=== PATIENT | female | born 1985 | race Asian ===

== ENCOUNTER → 2022-12-21 | Outpatient (CLI) | payer MEDICAID ==
[2022-12-21 11:09] LABS: Basophils # (auto) 0 10 ^3/uL (0-0.2); Basophils % (auto) 0.4 % (0.0-2.0); Eosinophils # (auto) 0.2 10 ^3/uL (0-0.8); Eosinophils % (auto) 1.5 % (0.0-7.0); Hematocrit 35.7 % (36.0-46.0); Hemoglobin 11.9 g/dL (12.2-16.2); Lymphocytes # (auto) 1.9 10 ^3/uL (0.4-5.4); Lymphocytes % (auto) 16.9 % (10.0-50.0); Mean Corpuscular Hemoglobin 29.3 pg (28.0-32.0); Mean Corpuscular Hgb Conc. 33.4 g/dL (32.0-36.0); Mean Corpuscular Volume 87.7 fL (80.0-100.0); Monocytes # (auto) 0.7 10 ^3/uL (0-1.3); Monocytes % (auto) 6.4 % (0.0-12.0); Neutrophils # (auto) 8.4 10 ^3/uL (1.6-8.6); Neutrophils % (auto) 74.8 % (37.0-80.0); Nucleated Red Blood Cells % 0.1 %; Red Blood Cells 4.07 10^6/uL (4.0-5.20); Red Cell Distribution Width 13.3 % (11.8-14.3); White Blood Cell 11.2 10^3/uL (4.4-10.8)
[2022-12-22 07:06] LABS: RPR Non Reactive (Non Reactive)
== END | disposition home or self-care (01) ==
LOC: LAB 10:36 → EDBD 10:36
PROVIDERS: ATTEND Obstetrics & Gynecology
DX: O09.90 Supervision of high risk pregnancy, unspecified, unspecified trimester (principal); N76.0 Acute vaginitis; Z3A.00 Weeks of gestation of pregnancy not specified
CPT/HCPCS: 36415; 84112; 85025; 86592

== ENCOUNTER 2023-01-24 20:03 | Observation (INO) | payer MEDICAID ==
[~2023-01-24] VITALS: Ht 160 cm; Wt 86.6 kg
[2023-01-24] MEDS ORDERED: PREN27TA7 PO (22:13)
== END 2023-01-24 22:22 | disposition home or self-care (01) ==
LOC: LDRP 20:03
PROVIDERS: ADMIT Obstetrics & Gynecology; ATTEND Obstetrics & Gynecology
DX: O48.0 Post-term pregnancy (principal); O62.9 Abnormality of forces of labor, unspecified; Z3A.40 40 weeks gestation of pregnancy
CPT/HCPCS: 59025; 76818; 81002; 94760; G0378

== ENCOUNTER 2023-01-26 13:12 | Observation (INO) | payer MEDICAID ==
[~2023-01-26 13:12] MED LIST: PREN27TA7 PO
== END 2023-01-26 15:06 | disposition home or self-care (01) ==
LOC: LDRP 13:12
PROVIDERS: ADMIT Obstetrics & Gynecology; ATTEND Obstetrics & Gynecology
DX: O48.0 Post-term pregnancy (principal); O62.9 Abnormality of forces of labor, unspecified; O09.33 Supervision of pregnancy with insufficient antenatal care, third trimester; Z3A.40 40 weeks gestation of pregnancy
CPT/HCPCS: 59025; 76818; 81002; G0378

== ENCOUNTER 2023-01-28 19:08 | Observation (INO) | payer MEDICAID | END 2023-01-28 21:00 | disposition home or self-care (01) | LOC: LDRP 19:08 | PROVIDERS: ADMIT Obstetrics & Gynecology; ATTEND Obstetrics & Gynecology | DX: O48.0 Post-term pregnancy (principal); Z3A.40 40 weeks gestation of pregnancy | CPT/HCPCS: 59025; 76818; 81002; 94760; G0378 ==

== ENCOUNTER 2023-01-30 19:24 | Inpatient (IN) | payer MEDICAID ==
[~2023-01-30] VITALS: Ht 160 cm; Wt 86.6 kg
[2023-01-30] MEDS ORDERED: PHISODERM TOP SOLN 240ML BTL TOP PRN (22:30)
[2023-01-30] MEDS ORDERED: LIDOCAINE 2%HCL (LOCAL ANESTH.) INJ 20ML MDV IJ PRN (22:30)
[2023-01-30 22:54] LABS: Basophils # (auto) 0.1 10 ^3/uL (0-0.2); Basophils % (auto) 0.4 % (0.0-2.0); Eosinophils # (auto) 0.1 10 ^3/uL (0-0.8); Eosinophils % (auto) 0.8 % (0.0-7.0); Hematocrit 38.6 % (36.0-46.0); Lymphocytes # (auto) 2.1 10 ^3/uL (0.4-5.4); Lymphocytes % (auto) 11.1 % (10.0-50.0); Mean Corpuscular Hemoglobin 29.9 pg (28.0-32.0); Mean Corpuscular Hgb Conc. 33.8 g/dL (32.0-36.0); Mean Corpuscular Volume 88.4 fL (80.0-100.0); Monocytes % (auto) 5.2 % (0.0-12.0); Neutrophils # (auto) 15.3 10 ^3/uL (1.6-8.6); Neutrophils % (auto) 82.5 % (37.0-80.0); Red Blood Cells 4.37 10^6/uL (4.0-5.20); Red Cell Distribution Width 14.6 % (11.8-14.3); White Blood Cell 18.5 10^3/uL (4.4-10.8)
[2023-01-30 23:00] LABS: INR 0.9 (0.9-1.15); Partial Thromboplastin Time 27.1 SEC (24.5-34.5)
[2023-01-30 23:00] LABS: Urine Bacteria NONE SEEN /hpf (None Seen); Urine Blood 1+ /uL (Negative); Urine Specific Gravity 1.002 (1.001-1.035); Urine WBC <1 /hpf (0 - 5)
[2023-01-30] MEDS ORDERED: TRANEXAMIC ACID 1,000 MG in SODIUM CHL 0.9% 100 ML IV PRN (23:00)
[2023-01-30] MEDS ORDERED: CARBOPROST TROMETHAMINE 250 MCG/1ML VIAL IM PRN (23:00)
[2023-01-30] MEDS ORDERED: METHYLERGONOVINE MALEATE 0.2 MG/ML AMP IM PRN (23:00)
[2023-01-30] MEDS ORDERED: ACETAMINOPHEN 325 MG TAB PO PRN (23:00)
[2023-01-30] MEDS ORDERED: diphenhdrAMINE HCL 50 MG/1 ML VL IV PRN (23:00)
[2023-01-30] MEDS ORDERED: miSOPROStol 100 mcg TAB SL PRN (23:00)
[2023-01-30] MEDS ORDERED: ONDANSETRON HCL 4 MG/2 ML VIAL IV PRN (23:00)
[2023-01-30] MEDS ORDERED: MINERAL OIL TOPICAL 10ml TOP PRN (23:00)
[2023-01-30] MEDS ORDERED: BUTORPHANOL TARTRATE 2 MG/1 ML VIAL IV PRN (23:00)
[2023-01-30 23:02] LABS: BUN/Creatinine Ratio 5.2 (10.0-20.0); Calcium 9.1 mg/dL (8.5-10.1); Potassium 3.5 mmol/L (3.5-5.1)
[2023-01-30 23:04] LABS: Bilirubin, Total 0.4 mg/dL (0.2-1.0); Total Protein 7.6 g/dL (6.4-8.2)
[2023-01-30] MEDS: LACTATED RINGER'S 1,000 ML IV SCH (23:19)
[2023-01-30] MEDS: WITCH HAZEL-GLYCERIN PAD TOP PRN (23:37)
[2023-01-30] MEDS: DERMOPLAST 60ML BOTTLE TOP PRN (23:37)
[2023-01-30] MEDS: NALBUPHINE HCL 10 MG/1ml INJECTION IV PRN (23:59)
[2023-01-31] MEDS ORDERED: DIPHENOXYLATE W/ATROPINE 2.5 MG TAB PO SCH
[2023-01-31] MEDS: PROMETHAZINE HCL 25 MG/ML 1ML IM PRN ×2 (00:02→05:35)
[2023-01-31 00:08] LABS: Alcohol, Urine < 3.0 mg/dL (0-10); Amphetamine Screen, Urine NEGATIVE (NEGATIVE); Barbiturate Scree,Urine NEGATIVE (NEGATIVE); Benzodiazephine Screen, Urine NEGATIVE (NEGATIVE); Cannabinoid Screen, Urine NEGATIVE (NEGATIVE); Cocaine Screen, Urine NEGATIVE (NEGATIVE); Opiate Scree,Urine NEGATIVE (NEGATIVE); Phencyclidine Screen, Urine NEGATIVE (NEGATIVE)
[2023-01-31] MEDS ORDERED: LACT. RINGERS/OXYTOCIN 20UNITS 500 ML IV ONE ×2 (00:15→00:45)
[2023-01-31] MEDS: LACTATED RINGER'S 1,000 ML IV SCH ×3 (01:56→08:40)
[2023-01-31] MEDS ORDERED: fentaNYL CITRATE 100 MCG/2 ML VL IV ONE ×2 (04:00→07:15)
[2023-01-31] MEDS ORDERED: STERILE WATER 10 ML ONE (04:00)
[2023-01-31] MEDS ORDERED: TERBUTALINE SULFATE 1 MG/ML 1ML VIAL SC PRN (05:15)
[2023-01-31] MEDS ORDERED: NALBUPHINE HCL 10 MG/1ml INJECTION ONE (05:23)
[2023-01-31] MEDS: NALBUPHINE HCL 10 MG/1ml INJECTION IV PRN (05:32)
[2023-01-31] MEDS ORDERED: LACTATED RINGER'S 500 ML IV ONE (07:15)
[2023-01-31] MEDS ORDERED: NALOXONE HCL 0.4 MG/ML VIAL IV ONE (07:15)
[2023-01-31] MEDS ORDERED: ePHEDrine SULFATE 50 MG/ML AMP IV ONE (07:15)
[2023-01-31] MEDS ORDERED: ROPIVACAINE HCL 200 ML EPI SCH (07:15)
[2023-01-31] MEDS ORDERED: Lidocaine W-Epinephrine 1.5%-1:200,000 INJ 10ml Vial ONE (07:44)
[2023-01-31] MEDS ORDERED: MINERAL OIL 30 ML XX ONE (08:49)
[2023-01-31] MEDS ORDERED: MINERAL OIL TOPICAL 10ml TOP ONE (09:00)
[2023-01-31] MEDS ORDERED: LACT. RINGERS/OXYTOCIN 20UNITS 1,000 ML IV SCH (10:15)
[2023-01-31] MEDS ORDERED: ACETAMINOPHEN 325 MG TAB PO PRN (13:15)
[2023-01-31] MEDS ORDERED: ONDANSETRON ODT 4 MG TAB PO PRN (13:15)
[2023-01-31] MEDS: IBUPROFEN 800 MG TAB PO SCH (13:17)
[2023-01-31] MEDS: DERMOPLAST 60ML BOTTLE TOP PRN (14:54)
[2023-01-31] MEDS: WITCH HAZEL-GLYCERIN PAD TOP PRN (14:54)
[2023-01-31 19:20] VITALS: BP 107/63; PULSE 90; RESP 18; TEMP 97.9; O2SAT 96
[2023-01-31] MEDS: IBUPROFEN 600 MG TAB PO PRN (21:55)
[2023-01-31] MEDS: DOCUSATE SOD 100 MG CAP PO SCH (21:55)
[2023-02-01] MEDS: IBUPROFEN 800 MG TAB PO SCH
[2023-02-01 03:10] VITALS: BP 112/68; PULSE 77; RESP 18; TEMP 98.3; O2SAT 97
[2023-02-01 06:07] LABS: RPR Non Reactive (Non Reactive)
[2023-02-01 07:30] VITALS: BP 112/72; PULSE 75; RESP 18; TEMP 97.6; O2SAT 100
[2023-02-01] MEDS: IBUPROFEN 600 MG TAB PO PRN ×2 (08:42→17:09)
[2023-02-01 11:00] VITALS: BP 118/68; PULSE 82; RESP 18; TEMP 97.7; O2SAT 97
[2023-02-01 15:30] VITALS: BP 118/68; PULSE 82; RESP 18; TEMP 97.6; O2SAT 97
[2023-02-01 19:10] VITALS: BP 116/66; PULSE 78; RESP 19; TEMP 97.4; O2SAT 97
[2023-02-01] MEDS: DOCUSATE SOD 100 MG CAP PO SCH ×2 (22:00→22:56)
[2023-02-01 22:41] VITALS: BP 110/74; PULSE 80; RESP 19; TEMP 97.9; O2SAT 95
[2023-02-02 02:47] VITALS: BP 112/76; PULSE 76; RESP 18; TEMP 97.8; O2SAT 96
[2023-02-02] MEDS: IBUPROFEN 600 MG TAB PO PRN (06:17)
[2023-02-02 07:15] VITALS: BP 121/68; PULSE 100; RESP 17; TEMP 98.9; O2SAT 96
[2023-02-02] MEDS ORDERED: HYDROcodone-ACET 5/325MG TAB PO PRN ×2 (07:30)
[2023-02-02] MEDS: DERMOPLAST 60ML BOTTLE TOP PRN (07:45)
[2023-02-02] MEDS: WITCH HAZEL-GLYCERIN PAD TOP PRN (07:45)
[2023-02-02] MEDS ORDERED: TETANUS-DIPTH-ACEL PERTUSSIS 0.5ML SYR Tdap IM ONE (10:00)
[2023-02-02 10:24] VITALS: BP 118/71; PULSE 99; RESP 17; TEMP 97.7; O2SAT 96
== END 2023-02-02 11:09 | disposition home or self-care (01) | DRG 560 ==
LOC: LDRP 19:24 → OBSVTOIN 22:12 → LDRP 22:52
PROVIDERS: ADMIT Obstetrics & Gynecology; ATTEND Obstetrics & Gynecology
PROC: 10E0XZZ Delivery of Products of Conception, External Approach (ICD-10-PCS; principal; 2023-01-31)
PROC: 0KQM0ZZ Repair Perineum Muscle, Open Approach (ICD-10-PCS; 2023-01-31)
PROC: 3E0R3BZ Introduction of Anesthetic Agent into Spinal Canal, Percutaneous Approach (ICD-10-PCS; 2023-01-31)
PROC: 00HU33Z Insertion of Infusion Device into Spinal Canal, Percutaneous Approach (ICD-10-PCS; 2023-01-31)
DX: O48.0 Post-term pregnancy (principal); Z37.0 Single live birth; O70.1 Second degree perineal laceration during delivery; Z3A.40 40 weeks gestation of pregnancy
CPT/HCPCS: 36415; 59025; 59409; 62282; 76818; 80053; 80307; 81001; 81002; 85025; 85610; 85730; 86592; 86850; 86900; 86901; 90715; 94760; 96361; 96365; 96366; 96372; 96374; 96375; G0378; J2590

== ENCOUNTER 2023-10-11 06:18 | Day surgery (SDC) | payer MEDICAID ==
[2023-10-09 12:21] LABS: Urine Bacteria None Seen /hpf (None Seen)
[2023-10-09 12:35] LABS: Basophils # (auto) 0.1 10 ^3/uL (0-0.2); Basophils % (auto) 1.1 % (0.0-2.0); Eosinophils # (auto) 0.1 10 ^3/uL (0-0.8); Eosinophils % (auto) 1.2 % (0.0-7.0); Hematocrit 39.2 % (36.0-46.0); Lymphocytes # (auto) 2.3 10 ^3/uL (0.4-5.4); Lymphocytes % (auto) 29.5 % (10.0-50.0); Mean Corpuscular Hemoglobin 29.2 pg (28.0-32.0); Mean Corpuscular Hgb Conc. 33.2 g/dL (32.0-36.0); Monocytes # (auto) 0.5 10 ^3/uL (0-1.3); Monocytes % (auto) 6.5 % (0.0-12.0); Neutrophils # (auto) 4.8 10 ^3/uL (1.6-8.6); Neutrophils % (auto) 61.7 % (37.0-80.0); Red Blood Cells 4.45 10^6/uL (4.0-5.20); Red Cell Distribution Width 14.1 % (11.8-14.3); White Blood Cell 7.8 10^3/uL (4.4-10.8)
[2023-10-09 12:42] LABS: Urine Blood Negative /uL (Negative); Urine Clarity Clear (Clear); Urine Color Light-Yellow (Yellow); Urine Mucus FEW (None Seen); Urine Protein, UAD Negative (Negative); Urine Urobilinogen Normal (Negative); Urine WBC 1 /hpf (0 - 5); Urine pH 5.5 (5.0-9.0)
[2023-10-09 12:45] LABS: INR 1.01 (0.9-1.15); Partial Thromboplastin Time 27.7 SEC (24.5-34.5); Prothrombin Time 10.6 sec (9.3-11.8)
[2023-10-09 13:03] LABS: Alanine Aminotransferase 15 U/L (7-40); Albumin 4.8 g/dL (3.2-4.8); Alkaline Phosphatase 109 U/L (46-116); Anion Gap 4 (5-15); Aspartate Aminotransferase 20 U/L (13-40); BUN/Creatinine Ratio 9.9 (10.0-20.0); Blood Urea Nitrogen 8 mg/dL (9-23); Calcium 9.7 mg/dL (8.5-10.1); Carbon Dioxide 29 mmol/L (20-30); Chloride 107 mmol/L (98-107); Glucose 78 mg/dL (74-106); Potassium 4.1 mmol/L (3.5-5.1); Sodium 140 mmol/L (136-145)
[2023-10-09 13:04] LABS: Bilirubin, Total 0.5 mg/dL (0.2-1.0); Total Protein 8.1 g/dL (5.7-8.2)
[~2023-10-11] VITALS: Ht 30.5 cm; Wt 0.5 kg
[2023-10-11] MEDS ORDERED: ceFAZolin 1GM/50ML 50 ML IV ONE (06:21)
[2023-10-11] MEDS ORDERED: ceFAZolin 2 GM/D5W50ml 50 ML IV ONE (06:21)
[2023-10-11] MEDS ORDERED: SUCCINYLCHOLINE CHLORIDE 20 MG/ML 10ML VIAL IV ONE (06:52)
[2023-10-11] MEDS ORDERED: ROPIVACAINE 0.5% (5MG/ML) 20ML AMPULE IJ ONE (06:53)
[2023-10-11] MEDS ORDERED: PROPOFOL 10 MG/ML 20 ML IV ONE (06:56)
[2023-10-11] MEDS ORDERED: fentaNYL CITRATE 100 MCG/2 ML VL ONE (06:57)
[2023-10-11] MEDS ORDERED: LIDOCAINE W/ EPINEPHRINE 1% 20ML VIAL ONE (07:04)
[2023-10-11] MEDS ORDERED: BUPIVACAINE HCL 0 ML ONE (07:04)
[2023-10-11] MEDS ORDERED: ZOFR4T PO (07:09)
[2023-10-11] MEDS ORDERED: HYDR-4902 PO (07:09)
[2023-10-11] MEDS ORDERED: ONDANSETRON HCL 4 MG/2 ML VIAL IV PRN (07:15)
[2023-10-11] MEDS ORDERED: LACTATED RINGER'S 1,000 ML IV SCH (07:15)
[2023-10-11] MEDS ORDERED: ROCURONIUM 10MG/ML 10ML VIAL IV ONE (07:20)
[2023-10-11] MEDS ORDERED: DexAMETHasone SOD PHOS 10MG/1ML VIAL INJ ONE (07:21)
[2023-10-11] MEDS ORDERED: ONDANSETRON HCL 4 MG/2 ML VIAL ONE (07:21)
[2023-10-11] MEDS ORDERED: MEPERIDINE HCL (50 MG/ML) 1 ML VIAL ONE (07:37)
[2023-10-11] MEDS ORDERED: SUGAMMADEX 200mg/2ml Vial (100MG/ML) IV ONE (07:48)
[2023-10-11 08:09] VITALS: RESP 11; TEMP 97; O2SAT 100
[2023-10-11] MEDS ORDERED: HYDROmorphone HCL 2 MG/ML VL/or syr IV PRN (08:30)
[2023-10-11] MEDS ORDERED: ONDANSETRON HCL 4 MG/2 ML VIAL IV ONE (08:30)
[2023-10-11] MEDS ORDERED: MEPERIDINE HCL (25 MG/ML) 1ML VIAL IV PRN (08:30)
[2023-10-11 09:23] VITALS: BP 120/81; PULSE 79; RESP 10; O2SAT 100
== END 2023-10-11 09:45 | disposition home or self-care (01) ==
LOC: SUR 06:18
PROVIDERS: ATTEND Obstetrics & Gynecology
DX: Z30.2 Encounter for sterilization (principal); Z87.891 Personal history of nicotine dependence; Z79.899 Other long term (current) drug therapy; Z98.890 Other specified postprocedural states
CPT/HCPCS: 36415; 58671; 80053; 81001; 84702; 85025; 85610; 85730; 86850; 86900; 86901; A4264; J0330; J0690; J1100; J2175; J2405; J2704; J2795; J3010; J3490